=== PATIENT | female | born 1990 | race Two or more races ===

== ENCOUNTER → 2017-08-16 | Outpatient (CLI) | payer MEDICAID | LOC: FIMAGING 07:32 | PROVIDERS: ATTEND Obstetrics & Gynecology | DX: O36.5930 Maternal care for other known or suspected poor fetal growth, third trimester, not applicable or unspecified (principal); Z3A.35 35 weeks gestation of pregnancy ==

== ENCOUNTER → 2017-09-09 | Outpatient (CLI) | payer MEDICAID | LOC: FIMAGING 13:45 | PROVIDERS: ATTEND Obstetrics & Gynecology | DX: O40.3XX0 Polyhydramnios, third trimester, not applicable or unspecified (principal); Z3A.38 38 weeks gestation of pregnancy ==

== ENCOUNTER 2017-09-13 17:00 | Inpatient (IN) | payer MEDICAID ==
[2017-09-13] MEDS ORDERED: TERBUTALINE SULFATE 1 MG/ML VIAL IV PRN (19:19)
[2017-09-13] MEDS ORDERED: EPSOM SALT 454 GM TP PRN (19:19)
[2017-09-13] MEDS ORDERED: OLIVE OIL 118 ML BTL MISC PRN (19:19)
[2017-09-13] MEDS ORDERED: LR 1,000 ML IV PRN (19:19)
[2017-09-13] MEDS ORDERED: OXYTOCIN 20 UNIT in LR 1,000 ML IV PRN (19:19)
[2017-09-13] MEDS ORDERED: ZOLPIDEM TARTRATE 5 MG TAB PO PRN (20:29)
[2017-09-13] MEDS ORDERED: OXYTOCIN 30 UNIT in NS 500 ML IV SCH (23:30)
--- NOTE | 2017-09-14 00:28 | GHP ---
[f rep st] HISTORY AND PHYSICAL DATE OF ADMISSION: 09/13/2017 HISTORY OF PRESENT ILLNESS: The patient is a 26-year-old, 3, para 2, with an EDC of 09/17/20 17, who comes in at 39 and 3/7 weeks for a Saldivar bulb for induction of labor. Patient was seen early on in the with [facility] at 14 and 3/7 weeks. Bedside ultrasound was done with crown-rump length of 13 and 6, no change to dates, positive heart rate. Dates were confirmed to be 09/17/2017. Anatomy scan with next visit was suggested with an early ultrasound. Patient did not return for care until 08/10/2017, at 34 and 4/7 weeks. Stated that she was in [place] fo r the last 4 months secondary to a family emergency. Patient did not want to give any further detail s. On return to [facility] a growth ultrasound was completed due to patient's history of I UGR with her first . Patient was to do this ultrasound with [facility]. MEDICAL HISTORY: Benign. SURGICAL HISTORY: Benign. GYNECOLOGICAL HISTORY: A previous abnormal Pap in November 2016, previous chlamydia in 2012. Menarc he at 10 years old. Length 4-5 days. LMP 12/11/2016. Certain dates, test positive in . SOCIAL HISTORY: Patient states significant other lives in [place], that he is unemployed, that he is the father of the other kids. Denies smoking history. Denies tobacco history. Denies drug history. Denies marijuana. ALLERGIES: NKDA. MEDICATIONS: vitamins with DHA. REVIEW OF SYSTEMS: x8 were benign. PREVIOUS HISTORY: 10/2013, a male, 5 pounds 6 ounces, 37 and 2/7 weeks, 13 hours of labor vaginally, induction of labor secondary to IUGR. 09/2014, a female, 7 pounds 14 ounces, 41 weeks, 6 hours of labor vaginal, short interval from her first to her 2nd . Present , M consult on 09/09/2017, for polyhydramnios of 30.8 cm. MFM thought a small TE fistula could also cause late polyhydramnios. This was reviewed with the patient per the MFM. 39 week induc tion of labor was recommended. Patient also states possible Zika exposure. However, patient has bee n asymptomatic so no testing was completed. LABS: Patient is AB positive. Antibody negative. RPR is nonreactive. Rubella is immune. Hepatiti s is negative. HIV is negative. One hour GTT was within normal limits. GBS was negative. PHYSICAL ASSESSMENT: GENERAL: Patient is awake, alert, oriented x3. LUNGS: Clear bilaterally. AB DOMEN: Bowel sounds are positive in all 4 quadrants. EXTREMITIES: DTRs are 1+ bilaterally with no clonus. Homans sign is negative bilaterally. Induction of labor was explained to patient. Saldivar bulb was placed. Reason for induction was again discussed. Patient seemed more unsure than I would have expected with an MFM, having said that they t alked to her and explained the possibility of a TE fistula on 09/09/2017. Patient was made aware that TANK RIVETER and possible radiologic studies would be necessary after delivery. Patient verbalized understan ding. Patient tolerated the Saldivar bulb placement with minimal difficulties. PLAN OF CARE: 1. Saldivar placement. 2. Reassessment in a.m. with Pitocin induction. 3. Consult Dr. Lisa Carbajal on plan of care as needed. /[id number]/MODL
[2017-09-14] MEDS ORDERED: MISOPROSTOL 200 MCG TAB ONE (05:00)
[2017-09-14] MEDS ORDERED: TERBUTALINE SULFATE 1 MG/ML VIAL ONE (05:00)
[2017-09-14] MEDS ORDERED: OXYTOCIN 10 UNIT/ML VIAL ONE (05:00)
[2017-09-14] MEDS ORDERED: LIDOCAINE 1% 300 MG/30 ML SDV ONE (05:00)
[2017-09-14] MEDS ORDERED: AMMONIA AROMATIC 1 EACH AMP IH ONE (05:00)
[2017-09-14] MEDS ORDERED: OLIVE OIL 118 ML BTL ONE (05:00)
--- NOTE | 2017-09-14 07:04 | OBPROG ---
Labor Progress Note Assessment/Plan: Assessment:cat 1 fhr denies pain regular contractions bains bulb dc'd exam 4-5/75/-2 cephalic vs wnl Plan:pitocin per protocol 09/14/17 07:02 Subjective/Intrapartum Course: 09/14/17 07:01 Doing well. Denies pain. Denies questions. - SVE Dilation (cm): 4, 5 Effacement (%): 75 Station: -2 Membranes: Intact - Contraction Pattern Assessment Current Contraction Pattern: Irregular - FHR Assessment Tafoya FHR (bpm): 135 FHR Pattern Variability: Moderate FHR Category: 1 - Physical Exam General Appearance: WD/WN Respiratory: chest non-tender, lungs clear, normal breath sounds Cardiac/Chest: regular rate, rhythm Abdomen: normal bowel sounds Extremities: normal range of motion DTR- Lower Extremities: Knee (R): 1+, Knee (L): 1+ Skin: normal color, warm/dry Neuro/Psych: no motor/sensory deficits, alert, normal mood/affect, oriented x 3 Oxytocin Orders Assessment - Pre-Induction/Augmentation Assessment Gestational Age: 39 week(s) and 3 day(s) ICD10 Worksheet Patient Problems: Problems Problem Status Onset Anemia due to acute blood loss Acute (normal spontaneous vaginal delivery) Acute Spontaneous onset of labor Acute
[2017-09-14 07:07] LABS: % IMMATURE GRANULYOCYTES 0.7 % (0.0-1.1); ABSOLUTE IMMATURE GRANULOCYTES 0.06 10^3/uL (0.00-0.10); ADD DIFF? NO; ADD MORPH? NO; ADD SCAN? NO; ATYPICAL LYMPHOCYTE FLAG 0 (0-99); FRAGMENT RBC FLAG 0 (0-99); HEMATOCRIT 36.6 % (38.0-47.0); LEFT SHIFT FLG 0 (0-99); LIPEMIA HEMOLYSIS FLAG 90 (0-99); MEAN CELL HEMOGLOBIN 30.1 pg (27.9-34.1); MEAN CELL HEMOGLOBIN CONCENTR. 35.5 g/dL (32.4-36.7); MEAN CELL VOLUME 84.7 fL (81.5-99.8); MEAN PLATELET VOLUME 9.9 fL (8.7-11.7); PLATELET CLUMPS FLAG 0 (0-99); PLATELET COUNT 205 10^3/uL (150-400); RED BLOOD CELL COUNT 4.32 10^6/uL (4.18-5.33); RED CELL DISTRIBUTION WIDTH 13.1 % (11.5-15.2)
--- NOTE | 2017-09-14 09:42 | OBPROG ---
Labor Progress Note Assessment/Plan: Assessment: IUP at 39+ wks late polyhydramnios, potential risk for TE fistula limited PNC potential ZIKA exposure, in [place] for most of Plan: AROM - clear fluid, vtx, on Pit for indxn 09/14/17 09:37 Subjective/Intrapartum Course: 09/14/17 07:01 Doing well. Denies pain. Denies questions. 09/14/17 09:42 Pt doing fine. on pit with mild ctxns, disc AROM and pt ok with it. Objective: 09/14/17 06:30 Patient ABO/Rh AB POSITIVE 09/14/17 06:30 - SVE Dilation (cm): 4 Effacement (%): 80 Station: 0 Membranes: Intact Amniotic Fluid Color: Clear - Contraction Pattern Assessment Current Contraction Pattern: Regular (q 2-3 on 10 mu/min), Irregular - FHR Assessment Tafoya FHR (bpm): 140 FHR Pattern Variability: Moderate FHR Category: 1 - Procedures Non-surgical Procedures: Amniotomy Oxytocin Orders Assessment - Pre-Induction/Augmentation Assessment Gestational Age: 39 week(s) and 3 day(s) ICD10 Worksheet Patient Problems: Problems Problem Status Onset Encounter for induction of labor Acute Polyhydramnios, antepartum complication Acute - ICD10 Problem Qualifiers (1) Anemia due to acute blood loss (2) Encounter for induction of labor (3) Polyhydramnios, antepartum complication
--- NOTE | 2017-09-14 13:00 | OBPROG ---
Labor Progress Note Assessment/Plan: Assessment: IUP at 39+ wks late polyhydramnios, potential risk for TE fistula limited PNC potential ZIKA exposure, in [place] for most of Plan: AROM - clear fluid, vtx, on Pit for indxn 09/14/17 09:37 Subjective/Intrapartum Course: 09/14/17 07:01 Doing well. Denies pain. Denies questions. 09/14/17 09:42 Pt doing fine. on pit with mild ctxns, disc AROM and pt ok with it. 09/14/17 12:57 Pt managing and ctxns building. variable decels noted with ctxns. pt walking Objective: 09/14/17 06:30 Patient ABO/Rh AB POSITIVE 09/14/17 06:30 - SVE Dilation (cm): 8 Effacement (%): 80 Station: -1 Membranes: Intact Amniotic Fluid Color: Clear - Contraction Pattern Assessment Current Contraction Pattern: Regular (q 2-3 on 10 mu/min), Irregular - FHR Assessment Tafoya FHR (bpm): 140 FHR Pattern Variability: Moderate FHR Category: 2 (variable decels with ctxns) - Procedures Non-surgical Procedures: Amniotomy Oxytocin Orders Assessment - Pre-Induction/Augmentation Assessment Gestational Age: 39 week(s) and 3 day(s) ICD10 Worksheet Patient Problems: Problems Problem Status Onset Encounter for induction of labor Acute Polyhydramnios, antepartum complication Acute - ICD10 Problem Qualifiers (1) Encounter for induction of labor (2) Polyhydramnios, antepartum complication
--- NOTE | 2017-09-14 13:43 | OBDEL ---
Info Type: Vaginal Presentation at Delivery: Vertex L&D Analgesia/Anesthesia Type: None GBS+: No Intrapartum Medications: Generic Name Dose Route Start Last Admin Trade Name Ena PRN Reason Stop Dose Admin Oxytocin 30 unit/ Sodium 503 mls @ 0 mls/hr 09/13/17 23:30 09/14/17 06:32 Chloride IV 03/12/18 23:29 503 mls CONT GENEVIEVE Administration Protocol Per Protocol - Infant Care Provider Ortho/Prosthetic Aide/REGULATORY AFFAIRS STRATEGY SPECIALIST: Shelley Saul - Hospital Course Intrapartum: 09/14/17 07:01 Doing well. Denies pain. Denies questions. 09/14/17 09:42 Pt doing fine. on pit with mild ctxns, disc AROM and pt ok with it. 09/14/17 12:57 Pt managing and ctxns building. variable decels noted with ctxns. pt walking Vaginal Delivery - Delivery Provider Delivery Physician/CNM: Maricruz Cantrell - Labor and Delivery Onset of Contractions Date: 09/14/17 Onset of Contractions Time: 12:15 Onset of Contractions Type: Induced Rupture of Membranes Date: 09/14/17 Rupture of Membranes Time: 09:25 Rupture of Membranes Type: Artificial Amniotic Fluid Color: Clear Dilation Complete Date: 09/14/17 Dilation Complete Time: 13:08 Placenta Delivery Date: 09/14/17 Placenta Delivery Time: 13:25 Total Hours of Labor: 1 Non-surgical Procedures: Amniotomy Laceration: Other (Specify) (NONE) Vaginal Sponge Count Correct: Yes Vaginal Needle Count Correct: Yes Vaginal Sweep Performed: Yes EBL: 300 Delivery Events: None - Medications Labor Augmentation/Induction Methods Used: Pitocin Labor Augmentation/Induction Indication: Other (Specify) (Polyhydramnios) [place] Data JOHNATHAN: 09/17/17 Gestational Age: 39 week(s) and 4 day(s) Tafoya Delivery Date: 09/14/17 Delivery Time: 13:21 Sex of : Male Score (1 Min): 8 Score (5 Min): 9 ICD10 Worksheet Patient Problems: Problems Problem Status Onset (spontaneous vaginal delivery) Acute - ICD10 Problem Qualifiers (1) Encounter for induction of labor (2) Polyhydramnios, antepartum complication
[2017-09-14] MEDS: IBUPROFEN 600 MG TAB PO PRN ×2 (14:11→20:01)
[2017-09-15] MEDS: IBUPROFEN 600 MG TAB PO PRN ×2 (02:07→08:39)
[2017-09-15 08:29] VITALS: BP 113/63; PULSE 68; RESP 17; TEMP 98; O2SAT 93
--- NOTE | 2017-09-15 09:25 | OBPP ---
Progress Note Assessment/Plan: Assessment: ppd# 1 s/p uncomplicated post course induced for late onset polyhydramnios limited care Plan: routine post care discharge instructions 09/15/17 09:23 Subjective/ Course: 09/15/17 09:24 patient is doing well. pain is well controlled. normal lochia. denies headache and changes in vision. breast feeding is going well. wants to go home today, wants baby circumcised Objective: 09/14/17 06:30 Patient ABO/Rh AB POSITIVE 09/14/17 06:30 Temp Pulse Resp BP Pulse Ox 36.7 C 68 17 113/63 93 09/15/17 08:00 09/15/17 08:00 09/15/17 08:00 09/15/17 08:00 09/15/17 08:00 Uterine Position/Fundal Height: Umbilicus -2 Uterine Tone: Firm Physical Exam - Physical Exam Neck: non-tender, full range of motion, supple Respiratory: chest non-tender, lungs clear, normal breath sounds Cardiac/Chest: normal peripheral pulses, regular rate, rhythm Abdomen: normal bowel sounds, non-tender Extremities: normal range of motion, non-tender, normal inspection, normal capillary refill Skin: normal color, warm/dry Neuro/Psych: no motor/sensory deficits, alert, normal mood/affect, oriented x 3
--- NOTE | 2017-09-15 09:31 | OBGCSDC ---
General Delivery Information - General Info : 3 Para: 3 Abortions: 0 Type: Vaginal L&D Analgesia/Anesthesia Type: None Admission Date: 09/13/17 Labs: Patient ABO/Rh AB POSITIVE 09/14/17 06:30 Hct 36.6 % (38.0-47.0) L 09/14/17 06:30 - Hospital Course Antepartum: 09/15/17 09:27 ob visit at 14 weeks at [facility]. was in [place] until 35 weeks. came back and had anatomy ultrasound. efw 12% and normal fluid. follow up ultrasound showed polyhydramnios and good growth. mfm recommended IOL due to late onset polyhydramnios for possible concern of TE fistula Intrapartum: 09/14/17 07:01 Doing well. Denies pain. Denies questions. 09/14/17 09:42 Pt doing fine. on pit with mild ctxns, disc AROM and pt ok with it. 09/14/17 12:57 Pt managing and ctxns building. variable decels noted with ctxns. pt walking : 09/15/17 09:24 patient is doing well. pain is well controlled. normal lochia. denies headache and changes in vision. breast feeding is going well. wants to go home today, wants baby circumcised Vaginal - Delivery Provider Delivery Physician/CNM: Maricruz Cantrell - Diagnosis Labor: Induced Rupture of Membranes Type: Artificial Amniotic Fluid Color: Clear Laceration: Other (Specify) (NONE) Delivery Events: None - Procedures Non-surgical Procedures: Amniotomy - Delivery Non-surgical Procedures: Amniotomy EBL: 300 [place] Data JOHNATHAN: 09/17/17 Gestational Age: 39 week(s) and 5 day(s) Tafoya Delivery Date: 09/14/17 Delivery Time: 13:21 Sex of : Male Score (1 Min): 8 Score (5 Min): 9 Discharge Information - Discharge Information Condition: Good
== END 2017-09-15 16:15 | disposition home or self-care (01) | DRG 775 ==
LOC: FLD 18:50 → FOB 09-14 17:05
PROVIDERS: ADMIT Obstetrics & Gynecology; ATTEND Obstetrics & Gynecology
DX: O40.3XX0 Polyhydramnios, third trimester, not applicable or unspecified (principal); Z37.0 Single live birth; Z3A.39 39 weeks gestation of pregnancy
CPT/HCPCS: J3105